=== PATIENT | female | born 1960 | race Two or more races ===

== ENCOUNTER 2017-03-09 12:53 | Emergency (ER) | payer MEDICAID ==
[~2017-03-09] VITALS: Ht 160 cm; Wt 98.0 kg
[2017-03-09] MEDS ORDERED: KETOROLAC 60MG/2ML VIAL IM ONE (17:15)
[2017-03-09 17:28] VITALS: BP 160/90
== END 2017-03-09 18:25 | disposition home or self-care (01) ==
LOC: ER 13:46
DX: M54.41 Lumbago with sciatica, right side (principal)
CPT/HCPCS: 96372; 99283; J1885